=== PATIENT | female | born 1935 ===

== ENCOUNTER 2017-01-21 19:01 | Emergency (ER) | payer MEDICARE, BC ==
--- NOTE | ~2017-01-21 | ER ---
PATIENT'S NAME: VALENTINE CORTEZ [facility] AGE: 81 Y [address] ROOM: [place] [id number] LOCATION: [facility] ADMIT DATE: 01/21/2017 ER/Outpatient Report DISCHARGE DATE: 01/21/2017 FAMILY PHYSICIAN: Marlene Camarillo MD ATTENDING PHYSICIAN: Venkata Peña Time of Arrival: 1909 hours. Time of Evaluation: 1913 hours. CHIEF COMPLAINT: Urinary frequency. HISTORY OF PRESENT ILLNESS: The patient states around noon today, she developed bilateral flank pain that radiates around to the front. She has had chills, urinary frequency, some nausea. No vomiting. Has not noticed any blood in her urine. Had a bowel movement today, no problems. States last time she had pain like this, it was due to urinary tract infection. ALLERGIES: ON THE CHART AND REVIEWED BY ME. MEDICATIONS: On the chart and reviewed by me. PAST MEDICAL HISTORY: Recurrent UTI and seasonal allergies. PAST SURGERIES: Hysterectomy. SOCIAL HISTORY: Denies use of tobacco, drugs, or alcohol. REVIEW OF SYSTEMS: All negative other than those mentioned in the HPI. PHYSICAL EXAMINATION: VITAL SIGNS: She weighed 77.5 kg, blood pressure is 149/77, pulse of 89, respirations 16, temperature of 97.9, and O2 saturation was 95% on room air. GENERAL: She is awake, alert, and oriented x4. SKIN: [place], warm, and dry. RESPIRATIONS: Even and nonlabored. Lung sounds are clear throughout. HEART: Regular rate and rhythm. ABDOMEN: She does have some generalized tenderness of the flank area. PATIENT'S NAME: VALENTINE CORTEZ [facility] AGE: 81 Y [address] ROOM: [place] [address] LOCATION: [facility] ADMIT DATE: 01/21/2017 ER/Outpatient Report DISCHARGE DATE: 01/21/2017 FAMILY PHYSICIAN: Marlene Camarillo MD ATTENDING PHYSICIAN: Venkata Peña LABORATORY DATA AND X-RAYS: Clean-catch UA was obtained, it shows positive leukocytes, negative nitrites, did have 25 of blood, white counts were 20 to 50, bacteria is negative. We will have the urine cultured. IMPRESSION: Dysuria. PLAN: Home. Rest. Fluids. Prescription was written for Levaquin and Pyridium. She is to follow up with her primary provider in the next 2 to 3 days if symptoms persist or worsen. She verbalized understanding. RAMSES LUI APRN FOR MD REANNA SAUCEDA/kristen /[id number] d: 01/22/17 0043 t: 01/24/17 1229, OUTPATIENT REPORT
[2017-01-21 19:27] LABS: BILIRUBIN URINE NEGATIVE (NEGATIVE); BLOOD URINE 25 /UL (NEGATIVE); COLOR URINE YELLOW (YELLOW); GLUCOSE URINE NEGATIVE (NEGATIVE); KETONE URINE NEGATIVE (NEGATIVE); LEUKOCYTES URINE 500 /UL (NEGATIVE); NITRITE URINE NEGATIVE (NEGATIVE); PROTEIN URINE NEGATIVE (NEGATIVE); SPEC GRAVITY URINE 1.015 (1.003-1.035); TURBIDITY URINE 1+ (CLEAR); UROBILINOGEN URINE NORMAL (NORMAL)
[2017-01-21 19:32] LABS: BACTERIA URINE NEGATIVE (NEGATIVE); EPITHELIAL URINE NEGATIVE #/HPF (NEGATIVE); RBC URINE RARE #/HPF (NEGATIVE); WBC URINE 20-50 #/HPF (NEGATIVE)
== END 2017-01-21 19:41 | disposition disaster alternative care site (69) ==
LOC: GMED 19:01
PROVIDERS: Emergency Medicine
DX: R30.0 Dysuria (principal); Z90.710 Acquired absence of both cervix and uterus; Z79.899 Other long term (current) drug therapy; Z88.2 Allergy status to sulfonamides; Z88.0 Allergy status to penicillin; Z88.8 Allergy status to other drugs, medicaments and biological substances; Z88.5 Allergy status to narcotic agent; Z87.440 Personal history of urinary (tract) infections

== ENCOUNTER → 2017-01-24 | Outpatient (CLI) | payer MEDICARE, BC ==
[2017-01-24 15:25] LABS: CPK 82 IU/L (21-215)
== END ==
LOC: LFPA 14:37
PROVIDERS: Family Medicine
DX: R06.02 Shortness of breath (principal)